=== PATIENT | female | born 1970 | race Caucasian/White ===

== ENCOUNTER 2016-08-31 19:59 | Emergency (ER) | payer SELFPAY | END 2016-08-31 22:40 | disposition home or self-care (01) | LOC: ER 19:59 | DX: F32.9 Major depressive disorder, single episode, unspecified (principal); M72.2 Plantar fascial fibromatosis; I10 Essential (primary) hypertension; K21.9 Gastro-esophageal reflux disease without esophagitis; Z79.899 Other long term (current) drug therapy | CPT/HCPCS: 36415 ==